=== PATIENT | male | born 1985 | race Hispanic/Latino ===

== ENCOUNTER → 2020-09-07 11:41 | Outpatient (CLI) | payer OTHER, SELFPAY ==
[2020-09-08 22:51] LABS: SARS-CoV-2 RNA PCR Negative
== END ==
PROVIDERS: PCP Family Medicine; Visit Provider Physician Assistant
DX: Z20.822 Contact with and (suspected) exposure to COVID-19 (principal); R05 Cough
CPT/HCPCS: C9803; U0003; U0005

== ENCOUNTER → 2020-09-12 06:54 | Outpatient (CLI) | payer OTHER, SELFPAY ==
[2020-09-12 19:08] LABS: SARS-CoV-2 RNA PCR Positive
== END ==
PROVIDERS: PCP Family Medicine; Visit Provider Physician Assistant
DX: U07.1 COVID-19 (principal); R05 Cough
CPT/HCPCS: C9803; U0003; U0005

== ENCOUNTER 2020-09-28 08:46 | Outpatient (CLI) | payer OTHER, SELFPAY | END 2020-09-28 08:47 | disposition home or self-care (01) | LOC: ANHCOVIDVC 08:46 | PROVIDERS: PCP Family Medicine | DX: Z23 Encounter for immunization (principal) | CPT/HCPCS: 0001A; 91300 ==

== ENCOUNTER 2020-10-19 08:43 | Outpatient (CLI) | payer OTHER, SELFPAY | END 2020-10-19 08:44 | disposition home or self-care (01) | LOC: ANHCOVIDVC 08:43 | PROVIDERS: PCP Family Medicine | DX: Z23 Encounter for immunization (principal) | CPT/HCPCS: 0002A; 91300 ==

== ENCOUNTER 2021-06-22 10:22 | Outpatient (CLI) | payer OTHER, SELFPAY ==
--- NOTE | 2021-06-22 10:55 | ECG_ITS ---
Measurements Intervals [place] Rate: 81 P: 24 LA: 158 QRS: 1 QRSD: 94 T: 8 QT: 365 QTc: 424 Interpretive Statements SINUS RHYTHM VOLTAGE CRITERIA FOR LVH MINIMAL Q WAVES- LAT/HIGH LAT LEADS BASELINE ARTIFACT- III BORDERLINE ECG Electronically Signed On 06-22-2021 16:31:14 CANCER REGISTRY COORDINATOR by Lobo Thomas D.O.
== END 2021-06-22 10:23 | disposition home or self-care (01) ==
PROVIDERS: PCP Family Medicine; Visit Provider Family Medicine
DX: R00.2 Palpitations (principal)
CPT/HCPCS: 93005

== ENCOUNTER 2023-08-06 09:37 | Outpatient (CLI) | payer OTHER, SELFPAY ==
[2023-08-06 10:54] LABS: Influenza A QL RT-PCR Negative (Negative); Influenza B QL RT-PCR Negative (Negative); RSV RNA, RT-PCR Negative (Negative); SARS-CoV-2 RNA PCR Negative (Negative)
== END 2023-08-06 09:38 | disposition home or self-care (01) ==
LOC: ANHLAB 09:39
PROVIDERS: PCP Family Medicine; Visit Provider Family Medicine
DX: J06.9 Acute upper respiratory infection, unspecified (principal); Z20.822 Contact with and (suspected) exposure to COVID-19
CPT/HCPCS: 87637